=== PATIENT | female | born 1990 | race American Indian/Alaskan Native ===

== ENCOUNTER 2021-11-17 09:36 | Emergency (ER) | payer SELFPAY ==
--- NOTE | 2021-11-17 09:45 | Event Note ---
ED Screening Note ED Screening Note: Patient came to the triage desk complaining of a list of symptoms that she states are resulting from her menses. She states she does this every month. She states that she passes out and that she has seizures. Patient threw herself on the floor in the waiting room. Nurse triaged her in. As she walked back to an [facility] she saw me and leaned up against the wall rolled her eyes back in the head and I said to her ma'am there young kids and old people in this ER that you are going to scare. You were on your cycle walk back to the room indicated to room 7 She stood up composed herself and walked very briskly out of the emergency room cussing us for not caring that she is on her period and in pain. This initial assessment/diagnostic orders/clinical plan/treatment(s) is/are subject to change based on patients health status, clinical progression and re- assessment by fellow clinical providers in the ED. Further treatment and workup at subsequent clinical providers discretion. Patient/guardian urged not to elope from the ED as their condition may be serious if not clinically assessed and managed. Initial orders include: Left before treatment. On leaving the ER she was walking briskly and in no acute distress.
[2021-11-17 09:46] VITALS: BP 124/79
== END 2021-11-17 14:49 | disposition left against medical advice (07) ==
LOC: ED 09:36
DX: R25.2 Cramp and spasm (principal); Z53.21 Procedure and treatment not carried out due to patient leaving prior to being seen by health care provider

== ENCOUNTER 2021-11-19 07:37 | Emergency (ER) | payer OTHER ==
[2021-11-19 07:48] VITALS: BP 120/80
== END 2021-11-19 10:00 | disposition left against medical advice (07) ==
LOC: ED 07:37
DX: R11.2 Nausea with vomiting, unspecified (principal); Z53.21 Procedure and treatment not carried out due to patient leaving prior to being seen by health care provider